=== PATIENT | male | born 1985 | race Caucasian/White ===

== ENCOUNTER 2016-11-19 12:12 | Inpatient (IN) | payer OTHER ==
[~2016-11-19] VITALS: Ht 182.9 cm; Wt 83.5 kg
--- NOTE | 2016-11-19 23:30 | NUR ---
ADMISSION NOTE BP: 141/95 HR: 100 RR: 18 SpO2: 98% T: 98.1 Pain: pt denies pain at this time Ht: 6'0" Wt: 184 lbs CIWA:9 Pt arrived ambulatory from [facility] Intake to the third floor accompanied by a BHT at 2250. Pt was received from [facility] ER for ETOH intoxication. Pt is a 31 year old male patient who was admitted on 11/19/16 for ETOH dependency. Pt is full code with NKDA. Pt reports a PMHx of anxiety, seizure in April 2016 related to withdrawal, and ear surgeries (age 9), Pt reports he has a PCP named Dr. Israel in [place], [place]. He brought in home medications of: 1. Ativan 1 mg- Last dose 1 week ago 2. Trazodone 100 mg- Last dose 1 week ago 3. Gabapentin 400 mg 4. Robaxin 750 mg Pt verbalized he is here for ETOH withdrawal and has been drinking for a total of 18 years. He reports that he has been in treatment since February 2016 but states " I tend to relapse 2-3 days before discharge." He reports his last sobriety was for 2 months from Aug 2016-October 2016. He reports his last treatment was at [facility] for four days, one week ago. He describes his current use as: 1. ETOH (vodka) 1.75 mL daily for 2 weeks Last dose: 0.875 mL on 11/19/16 He reports his withdrawal symptoms as " shakiness, crying, nausea, and vomiting." Upon assessment, pt is alert and oriented x4, anxious, and cooperative. Speech is clear and audible. Heart rate regular, pt denies chest pain or SOB. PERRLA, breathing is even and unlabored, lung sounds clear, abdomen is soft and non distended. Bowel sounds present, last BM 11/19/16. Pt reports BM is regular. Pt's skin is warm, dry and intact. made aware of admission. Pt oriented to room and unit. Pt safe with bed locked in lowest position, side rails up x2 and call light within reach. Will continue to monitor.
[2016-11-19 23:44] LABS: *AMPHETAMINE, URINE NEGATIVE (NEGATIVE); *BARBITURATE, URINE NEGATIVE (NEGATIVE); *CANNABINOID, URINE NEGATIVE (NEGATIVE); *COCCAINE, URINE NEGATIVE (NEGATIVE); *OPIATE, URINE NEGATIVE (NEGATIVE); *PHENCYCLIDINE SCREEN,URINE NEGATIVE (NEGATIVE)
[2016-11-20] VITALS: BP 132/77
[2016-11-20] MEDS ORDERED: DICYCLOMINE HCL 20 MG TABLET PO PRN (00:15)
[2016-11-20] MEDS ORDERED: LORAZEPAM 2 MG/1 ML VIAL IM PRN (00:15)
[2016-11-20] MEDS ORDERED: MAGNESIUM HYDROXIDE 30 ML LIQUID UDC PO PRN (00:15)
[2016-11-20] MEDS ORDERED: IBUPROFEN 400 MG TABLET PO PRN (00:15)
[2016-11-20] MEDS ORDERED: ONDANSETRON ODT 4 MG TAB.RAPDIS SL PRN (00:15)
[2016-11-20] MEDS ORDERED: MAG HYDROX/AL HYDROX/SIMETH 30 ML LIQUID UDC PO PRN (00:15)
[2016-11-20] MEDS ORDERED: CLONIDINE HCL 0.1 MG TABLET PO PRN (00:15)
[2016-11-20] MEDS ORDERED: THIAMINE HCL 200 MG/2 ML VIAL IM ONE (00:15)
[2016-11-20] MEDS ORDERED: HYDROXYZINE PAMOATE 25 MG CAPSULE PO PRN (00:15)
[2016-11-20] MEDS ORDERED: ACETAMINOPHEN 325 MG TABLET PO PRN (00:15)
[2016-11-20] MEDS ORDERED: LORAZEPAM 1 MG TABLET PO PRN ×2 (00:15)
[2016-11-20] MEDS ORDERED: LOPERAMIDE HCL 2 MG CAPSULE PO PRN ×2 (00:15)
[2016-11-20] MEDS ORDERED: THIAMINE HCL 200 MG/2 ML VIAL ONE (00:48)
[2016-11-20] MEDS ORDERED: ONDANSETRON ODT 4 MG TAB.RAPDIS ONE (00:48)
[2016-11-20] MEDS ORDERED: TRAZODONE 50 MG TABLET ONE (00:49)
[2016-11-20] MEDS ORDERED: LORAZEPAM 1 MG TABLET ONE (00:50)
[2016-11-20] MEDS: TRAZODONE 50 MG TABLET PO PRN ×2 (00:55→20:59)
--- NOTE | 2016-11-20 00:55 | NUR ---
PRN ATIVAN/ZOFRAN/TRAZODONE Pt complains of nausea, and inability to fall asleep. Pt noted with fine tremors and complains of sweats/chills. CIWA:9. PRN Ativan, Zofran and Trazodone administered as ordered. Breathing is even and unlabored, safety measures in place. Will continue to monitor effectiveness of medications.
[2016-11-20] MEDS ORDERED: TRAZ-147 PO (01:13)
[2016-11-20] MEDS ORDERED: METH-406 PO (01:13)
[2016-11-20] MEDS ORDERED: LORA1TAB PO (01:13)
[2016-11-20] MEDS ORDERED: GABA-536 PO (01:13)
[2016-11-20] MEDS ORDERED: CLONIDINE HCL 0.1 MG TABLET ONE (01:24)
--- NOTE | 2016-11-20 01:35 | NUR ---
PRN CLONIDINE Pt complains of anxiety/agitation. PRN Clonidine administered as ordered. Breathing is even and unlabored, safety measures in place. Will continue to monitor effectiveness of medication.
[2016-11-20 01:38] LABS: ALBUMIN 4.5 g/dL (3.4-5.0); BILIRUBIN,TOTAL 0.3 mg/dL (0.2-1.0); CALCIUM 8.3 mg/dL (8.5-10.1); CREATININE 0.9 mg/dL (0.6-1.3); MAGNESIUM 1.8 mg/dL (1.8-2.4); POTASSIUM 3.9 mmol/L (3.5-5.1); TOTAL PROTEIN, SERUM 8.3 g/dL (6.4-8.2)
[2016-11-20 01:41] LABS: THYROID STIMULATING HORMONE 1.766 mIU/mL (0.358-3.740)
[2016-11-20 01:42] LABS: BASOPHILS % (AUTO) 0.9 % (0.0-2.0); EOSINOPHILS # (AUTO) 0.1 K/uL (0.0-0.7); EOSINOPHILS % (AUTO) 1.7 % (0.0-7.0); HEMATOCRIT 50.5 % (36.7-47.1); HEMOGLOBIN 17.6 g/dL (12.5-16.3); LYMPHOCYTES # (AUTO) 1.6 K/uL (40.0-85.0); LYMPHOCYTES % (AUTO) 31.8 % (20.5-51.5); MEAN CORPUSCULAR HEMOGLOBIN 31.3 uug (23.8-33.4); MEAN CORPUSCULAR HGB CONC 35 g/dL (32.5-36.3); MONOCYTES # (AUTO) 0.4 K/uL (2.0-10.0); MONOCYTES % (AUTO) 8.2 % (0.0-11.0); NEUTROPHILS # (AUTO) 2.9 K/uL (1.8-8.9); NEUTROPHILS % (AUTO) 57.4 % (38.5-71.5); PLATELET COUNT (AUTO) 153 K/uL (152-348); RED BLOOD CELL COUNT(AUTO) 5.61 MIL/uL (4.06-5.63); RED CELL DISTRIBUTION WIDTH 14.2 % (12.1-16.2)
[2016-11-20 01:44] LABS: HIV-1 p24 ANTIGEN NON REACTIVE (NONREACTIVE); HIV-1/2 ANTIBODY NON REACTIVE (NONREACTIVE)
--- NOTE | 2016-11-20 01:55 | NUR ---
PRN ATIVAN/ZOFRAN/TRAZODONE REASSESSMENT PRN medications effective. Pt reports decrease in nausea, CIWA decreased to 5, pt appears to be drowsy and ready to sleep. Breathing even and unlabored, safety measures in place, will continue to monitor.
--- NOTE | 2016-11-20 02:35 | NUR ---
PRN CLONIDINE REASSESSMENT PRN medication effective. Pt noted to be calmly lying in bed with eyes closed and is asleep. Breathing is even and unlabored, safety measures in place. Will continue to monitor.
[2016-11-20 04:00] VITALS: BP 94/58
--- NOTE | 2016-11-20 07:00 | NUR ---
END OF SHIFT Pt remained stable. He had complaints of anxiety, chills, inability to sleep, and nausea. He received PRN Trazodone, Ativan 1 mg for CIWA:9, Zofran and Clonidine. PRN medications were effective in relieving his withdrawal symptoms as evidenced by decrease in CIWA to 5. He slept a total of 5 hrs, Intake: 651 mL, Void: x1, BM: 0, CIWA: 3 at 0400. Pt remains alert and oriented x4, breathing is even and unlabored, safety measures in place. Will endorse to oncoming nurse.
--- NOTE | 2016-11-20 07:30 | NUR ---
Start of shift note; Patient is AOX4. Patient is a 31 y/o male admitted on 11/19/16 for ETOH dependence. Patient reported history of seizure d/t withdrawals last episode was on Apr 2016, patient also reported history of anxiety. Patient was recently at ER prior to admission d/t intoxication. Patient slept for 5 hours. Patient is on full code status, regular diet, NKA. Patient is on fall and seizure precaution. Will closely monitor patient.
[2016-11-20 08:00] VITALS: BP 104/68
[2016-11-20] MEDS: FOLIC ACID 1 MG TABLET PO SCH (09:07)
[2016-11-20] MEDS: THIAMINE HCL 100 MG TABLET PO SCH (09:07)
[2016-11-20] MEDS: MULTIVITAMINS,THERAPEUTIC TABLET PO SCH (09:07)
[2016-11-20] MEDS ORDERED: METHOCARBAMOL 750 MG TABLET PO PRN (09:15)
[2016-11-20] MEDS: LORAZEPAM 1 MG TABLET PO SCH ×5 (09:39→20:59)
[2016-11-20] MEDS: GABAPENTIN 300 MG CAPSULE PO SCH ×3 (09:39→20:59)
[2016-11-20 12:00] VITALS: BP 94/52
--- NOTE | 2016-11-20 13:00 | NUR ---
MD communication. MD on unit. Patient was seen and evaluated by MD. Taper order clarified with MD, per MD to continue taper as per ordered. Ativan dose was held due to sedation, MD aware. Will closely monitor patient.
[2016-11-20 16:00] VITALS: BP 102/64
--- NOTE | 2016-11-20 18:22 | NUR ---
End of shift note; Patient is AOX4. Patient remained compliant with treatment plan. Medications were effective in reducing withdrawal symptoms. Patient's last CIWA is 7 at 1600. Patient is on fall and seizure precaution. Bed in lowest position,call light within reach. Met all patient's needs.
--- NOTE | 2016-11-20 19:15 | NUR ---
START OF SHIFT Received 31 year old male patient admitted on 11/19/16 for EOTH dependency. Pt is full code with NKA. He reports a PMHx of anxiety, and seizure in April 2016 d/t withdrawal. Pt started on 5 day Ativan taper and tolerating well. Per endorsement, pt's 1300 Ativan was held d/t sedation, was made aware. Pt is alert and oriented x4, breathing is even and unlabored, safety measures in place. Will continue to monitor.
[2016-11-20 20:00] VITALS: BP 123/80
--- NOTE | 2016-11-20 20:40 | NUR ---
NURSING NOTE Pt revealed that he was on a two week binge using 1.75 mL of vodka daily, went to [facility] to detox for four days, and relapsed for two days using 0.875 mL of vodka. Charge nurse made aware. Will continue to monitor.
--- NOTE | 2016-11-20 20:59 | NUR ---
PRN TRAZODONE Pt complains of inability to sleep. PRN Trazodone administered as ordered. Breathing is even and unlabored, safety measures in place. Will continue to monitor effectiveness of medication.
--- NOTE | 2016-11-20 22:00 | NUR ---
PRN TRAZODONE REASSESSMENT PRN medication effective. Pt lying comfortably in bed with eyes closed and is noted to be asleep. Respirations 16, breathing is even and unlabored, safety measures in place. Will continue to monitor.
[2016-11-21] VITALS: BP 95/56
[2016-11-21 04:00] VITALS: BP 115/69
--- NOTE | 2016-11-21 06:58 | NUR ---
END OF SHIFT Pt is alert and oriented x4. He received PRN Trazodone at 2058 d/t inability to sleep. PRN medication was effective. Pt clarified his substance abuse history and verbalized that his taper should be decreased. Charge nurse was made aware. He slept a total of 9 hrs, Intake:1243 mL Void:x1 BM:0 CIWA: 1 at 0400. Breathing is even and unlabored. Pt safe with bed locked in lowest position, side rails up x2 and call light within reach. Will endorse to oncoming nurse.
--- NOTE | 2016-11-21 07:30 | NUR ---
START OF SHIFT Rcvd client in room, he presents with irritable, anxious mood, chills, tremors are felt, not observed, he denies ZAMORA, N/V/D. Encouraged increased fluids as tolerated. Encouraged group therapy attendance. Per security shift supervisor nurse, client admitted to [facility] for withdrawal from alcohol, but he stated last night "I was on a drink binge for 3 days." he reports consuming 1.75mL of Vodka daily for 3 days. He is on a 5 day Ativan taper, tolerating well. Will notify MD.Past Medical History anxiety, withdrawal-induced seizure (Apr 2016). PRN Trazodone for inability to sleep, he slept 6 hrs. He is full code, regular diet, NKA. Client is on seizure and fall precautions. Side rails up/padded x 2, call light within reach, bed locked in lowest positions. Will continue with plan of care
[2016-11-21 07:58] LABS: ALBUMIN 3.2 g/dL (3.4-5.0); BILIRUBIN,DIRECT 0.1 mg/dL (0.0-0.2); BILIRUBIN,TOTAL 0.5 mg/dL (0.2-1.0); CALCIUM 8.3 mg/dL (8.5-10.1); CREATININE 0.9 mg/dL (0.6-1.3); MAGNESIUM 1.9 mg/dL (1.8-2.4); PHOSPHOROUS 3.9 mg/dL (2.5-4.9); POTASSIUM 3.6 mmol/L (3.5-5.1); TOTAL PROTEIN, SERUM 6.1 g/dL (6.4-8.2)
[2016-11-21 08:00] VITALS: BP 114/73
[2016-11-21] MEDS ORDERED: TUBERCULIN,PURIF.PROT.DERIV. 5 TU/0.1 ML TEST ID ONE (09:00)
[2016-11-21] MEDS ORDERED: LORAZEPAM 1 MG TABLET PO SCH (09:00)
--- NOTE | 2016-11-21 09:10 | NUR ---
Client refused TB test, Dr Dang ordered Cx-ray for "medical clearance for active TB." Client verbalized understanding.
[2016-11-21] MEDS: GABAPENTIN 300 MG CAPSULE PO SCH ×3 (09:29→21:19)
[2016-11-21] MEDS: FOLIC ACID 1 MG TABLET PO SCH (09:29)
[2016-11-21] MEDS: MULTIVITAMINS,THERAPEUTIC TABLET PO SCH (09:29)
[2016-11-21] MEDS: THIAMINE HCL 100 MG TABLET PO SCH (09:29)
[2016-11-21] MEDS ORDERED: LORAZEPAM 2 MG/1 ML VIAL IM PRN (11:30)
[2016-11-21] MEDS ORDERED: LORAZEPAM 1 MG TABLET PO PRN (11:30)
[2016-11-21 12:00] VITALS: BP 131/81
[2016-11-21 16:00] VITALS: BP 125/79
--- NOTE | 2016-11-21 19:05 | NUR ---
END OF SHIFT Client is in room, he is anxious, tremors are felt, not observed, he denies ZAMORA, N/V/D. Adequate PO intake 4484mL, void x 8, stool x 1. He attended group therapy. client admitted to [facility] for withdrawal from alcohol, he reports consuming 1.75mL of Vodka daily for [address] Dang D/C his Ativan taper. He has PRN Ativan 1mg for CIWA 5-15 (24 hrs) available for withdrawal symptoms. Last CIWA 4 @ 1600. Past Medical History anxiety, withdrawal-induced seizure (Apr 2016). He is full code, regular diet, NKA. Client is on seizure and fall precautions. Side rails up/padded x 2, call light within reach, bed locked in lowest positions. Will continue with plan of care
--- NOTE | 2016-11-21 19:25 | NUR ---
Start of Shift Patient Received. Patient is in activities room participating in group meetings. Patient is a 31 year old male, admitted on 11/19/16 for ETOH dependence under the care of Dr. Dang. Patient was placed on a 5 day Ativan taper. Taper since has been discontinued to PRN Ativan 1mg For CIWA 5-15. Patient verbalizes no known allergies, wishes to be full code, following a regular diet, skin intact, placed on fall and seizure precautions. Patient verbalized past medical history of anxiety and seizure due to withdrawal. Patient is high risk for AMA with MD aware. Per endorsement, patient noted with a CIWA of 4 at 1600. All needs attended to promptly. Will continue plan of care as ordered.
[2016-11-21 20:36] VITALS: BP 139/89
[2016-11-21] MEDS: TRAZODONE 50 MG TABLET PO PRN (21:19)
--- NOTE | 2016-11-21 21:30 | NUR ---
PRN Medication Administration Patient is verbalizing inability of falling asleep. PRN Trazodone administered with routine medications. Will continue to monitor for effectiveness of medication.
[2016-11-22 00:55] VITALS: BP 108/67
[2016-11-22 04:16] VITALS: BP 117/71
--- NOTE | 2016-11-22 07:00 | NUR ---
End of Shift Patient is in bed sleeping. Breathing even and non labored. No signs of pain or discomfort noted. Patient is a 31 year old male, admitted on 11/19/16 for ETOH dependence under the care of Dr. Dang. Patient was placed on a 5 day Ativan taper. Taper since has been discontinued to PRN Ativan 1mg For CIWA 5-15. Patient verbalizes no known allergies, full code, regular diet, skin intact, placed on fall and seizure precautions. Patient verbalized past medical history of anxiety and seizure due to withdrawal. Patient is high risk for AMA with MD aware. At 2100 Patient noted with a CIWA of 3. Patient was also given PRN Trazodone for inability of falling asleep with medication noted to be effective. Patient slept a total of 8 hours. All needs attended to promptly. Will continue plan of care as ordered.
--- NOTE | 2016-11-22 07:51 | NUR ---
Start of shift note; Patient is AOX4. Patient is a 31 y/o male admitted on 11/19/16 for ETOH dependence. Patient reported history of seizure d/t withdrawals last episode was on Apr 2016, patient also reported history of anxiety. Patient slept for 8 hours. Patient is on full code status, regular diet, NKA. Patient is on fall and seizure precaution. Patient's last CIWA score is 3 per endorsement. Patient is currently on PRN medications for CIWA score of 5-15. Patient is high risk for MD BONNY aware per endorsement. Safety measures secured. Will closely monitor patient.
[2016-11-22 08:00] VITALS: BP 109/67
[2016-11-22] MEDS ORDERED: LORAZEPAM 1 MG TABLET PO SCH (09:00)
[2016-11-22] MEDS: THIAMINE HCL 100 MG TABLET PO SCH (09:13)
[2016-11-22] MEDS: GABAPENTIN 300 MG CAPSULE PO SCH ×2 (09:13→15:11)
[2016-11-22] MEDS: MULTIVITAMINS,THERAPEUTIC TABLET PO SCH (09:13)
[2016-11-22] MEDS: FOLIC ACID 1 MG TABLET PO SCH (09:14)
[2016-11-22 12:00] VITALS: BP 120/85
[2016-11-22] MEDS ORDERED: TRAZ-144 PO (14:11)
[2016-11-22] MEDS ORDERED: Gabapentin PO (14:11)
[2016-11-22 14:28] LABS: *AMPHETAMINE, URINE NEGATIVE (NEGATIVE); *BARBITURATE, URINE NEGATIVE (NEGATIVE); *CANNABINOID, URINE NEGATIVE (NEGATIVE); *COCCAINE, URINE NEGATIVE (NEGATIVE); *OPIATE, URINE NEGATIVE (NEGATIVE); *PHENCYCLIDINE SCREEN,URINE NEGATIVE (NEGATIVE)
--- NOTE | 2016-11-22 16:25 | NUR ---
Discharge note; Patient is AOX4. All patient's belongings, valuables, medications and prescriptions given to patient. Patient was medically cleared for discharge. Patient denies any suicidal/homicidal ideations. Patient left the hospital in a stable condition. Patient left the hospital at 1625 on 11/22/16. Met all needs.
[2016-11-23 04:06] LABS: HEPATITIS B CORE AB, IgM Negative (Negative); HEPATITIS B SURFACE AG Negative (Negative)
[2016-11-23] MEDS ORDERED: LORAZEPAM 1 MG TABLET PO SCH (09:00)
[2016-11-24] MEDS ORDERED: LORAZEPAM 1 MG TABLET PO SCH (09:00)
== END 2016-11-22 16:25 | disposition home or self-care (01) | DRG 895 ==
LOC: SRC 22:04
PROVIDERS: ADMIT Internal Medicine; ATTEND Internal Medicine
PROC: HZ2ZZZZ Detoxification Services for Substance Abuse Treatment (ICD-10-PCS; principal; 2016-11-19)
PROC: HZ41ZZZ Group Counseling for Substance Abuse Treatment, Behavioral (ICD-10-PCS; 2016-11-21)
PROC: HZ31ZZZ Individual Counseling for Substance Abuse Treatment, Behavioral (ICD-10-PCS; 2016-11-21)
DX: F10.230 Alcohol dependence with withdrawal, uncomplicated (principal); E87.3 Alkalosis; K70.10 Alcoholic hepatitis without ascites; Y90.9 Presence of alcohol in blood, level not specified; Z59.0 Homelessness; G47.00 Insomnia, unspecified; E86.0 Dehydration; F41.9 Anxiety disorder, unspecified; Z86.69 Personal history of other diseases of the nervous system and sense organs
CPT/HCPCS: 36415; 70030-TC; 71010; 80307; 80346; 83690; 83735; 84100; 84443; 85025; 86705; 87340; 87806; A4663; G6040-TC; J3411; Q0162

== ENCOUNTER 2016-11-19 15:50 | Emergency (ER) | payer OTHER ==
[~2016-11-19] VITALS: Ht 182.9 cm; Wt 83.9 kg
--- NOTE | 2016-11-19 16:14 | NUR ---
Pt brought to bed 3 via wc from [facility], pt uncooperative at this time.
--- NOTE | 2016-11-19 16:17 | NUR ---
Pt ststes " i want to go upstairs".
--- NOTE | 2016-11-19 17:05 | NUR ---
Pt resting on gujaye , waiting for lab results.
[2016-11-19 17:08] LABS: BASOPHILS % (AUTO) 0.4 % (0.0-2.0); EOSINOPHILS # (AUTO) 0.1 K/uL (0.0-0.7); EOSINOPHILS % (AUTO) 1.8 % (0.0-7.0); HEMATOCRIT 49.4 % (36.7-47.1); HEMOGLOBIN 17.3 g/dL (12.5-16.3); LYMPHOCYTES # (AUTO) 1.8 K/uL (40.0-85.0); LYMPHOCYTES % (AUTO) 31.9 % (20.5-51.5); MEAN CORPUSCULAR HEMOGLOBIN 31.5 uug (23.8-33.4); MEAN CORPUSCULAR HGB CONC 35 g/dL (32.5-36.3); MONOCYTES # (AUTO) 0.4 K/uL (2.0-10.0); MONOCYTES % (AUTO) 7.8 % (0.0-11.0); NEUTROPHILS # (AUTO) 3.2 K/uL (1.8-8.9); NEUTROPHILS % (AUTO) 58.1 % (38.5-71.5); PLATELET COUNT (AUTO) 148 K/uL (152-348); RED BLOOD CELL COUNT(AUTO) 5.49 MIL/uL (4.06-5.63); RED CELL DISTRIBUTION WIDTH 13.8 % (12.1-16.2); WHITE BLOOD COUNT (AUTO) 5.5 K/uL (3.6-10.2)
[2016-11-19 17:12] LABS: CALCIUM 8.1 mg/dL (8.5-10.1); CREATININE 0.8 mg/dL (0.6-1.3); POTASSIUM 3.8 mmol/L (3.5-5.1)
[2016-11-19 17:18] LABS: ALBUMIN 4.2 g/dL (3.4-5.0); BILIRUBIN,TOTAL 0.4 mg/dL (0.2-1.0); TOTAL PROTEIN, SERUM 7.7 g/dL (6.4-8.2)
[2016-11-19] MEDS ORDERED: IV NORMAL SALINE 1000 ML BAG IV ONE ×2 (17:30→17:45)
[2016-11-19] MEDS ORDERED: IV D5W-0.45% NS 1000 ML BAG IV ONE (17:45)
[2016-11-19] MEDS ORDERED: ONDANSETRON ODT 4 MG TAB.RAPDIS SL ONE (21:30)
--- NOTE | 2016-11-19 21:39 | NUR ---
Patient discharged [facility] in stable conditon. Written and verbal after care instructions given. Patient verbalizes understanding of instructions.
[2016-11-19 21:45] LABS: *AMPHETAMINE, URINE NEGATIVE (NEGATIVE); *BARBITURATE, URINE NEGATIVE (NEGATIVE); *CANNABINOID, URINE NEGATIVE (NEGATIVE); *COCCAINE, URINE NEGATIVE (NEGATIVE); *OPIATE, URINE NEGATIVE (NEGATIVE); *PHENCYCLIDINE SCREEN,URINE NEGATIVE (NEGATIVE)
[2016-11-19] MEDS ORDERED: ONDANSETRON ODT 4 MG TAB.RAPDIS ONE (21:45)
[2016-11-20] MEDS ORDERED: LORA1TAB PO (01:13)
[2016-11-20] MEDS ORDERED: TRAZ-147 PO (01:13)
[2016-11-20] MEDS ORDERED: GABA-536 PO (01:13)
[2016-11-20] MEDS ORDERED: METH-406 PO (01:13)
== END 2016-11-19 21:41 | disposition home or self-care (01) ==
LOC: ER 15:52
DX: F10.129 Alcohol abuse with intoxication, unspecified (principal); F41.9 Anxiety disorder, unspecified; E86.0 Dehydration; F17.200 Nicotine dependence, unspecified, uncomplicated
CPT/HCPCS: 36415; 80307; 85025; A4663; G6040-TC; J3490; J7030; Q0162